=== PATIENT | male | born 1990 | race Caucasian/White ===

== ENCOUNTER 2020-09-19 18:59 | Emergency (ER) | payer SELFPAY ==
[~2020-09-19] VITALS: Ht 167.6 cm; Wt 54.5 kg
[2020-09-19 19:04] VITALS: BP 145/91; PULSE 112; TEMP 97.7
[2020-09-19] MEDS ORDERED: FLEXERIL 1010 MG/TAB PO (19:48)
[2020-09-19] MEDS ORDERED: NAPROSYN500 MG PO (19:48)
== END 2020-09-19 20:23 | disposition home or self-care (01) ==
LOC: COL.ER 18:59
DX: M25.512 Pain in left shoulder (principal); R41.0 Disorientation, unspecified; F17.200 Nicotine dependence, unspecified, uncomplicated